=== PATIENT | female | born 1955 | race Caucasian/White ===

== ENCOUNTER → 2017-06-02 | Outpatient (CLI) | payer OTHER ==
[~2017-06-02] MED LIST: HYDR2TAB48 PO
--- NOTE | 2017-06-02 15:39 | DIAGNOSTIC IMAGING REPORT ---
MRI OF THE LUMBAR SPINE WITHOUT CONTRAST CLINICAL HISTORY: Lumbar spine stenosis. Low back pain radiating into left lower extremity. COMPARISON STUDY: No previous studies for comparison. TECHNIQUE: Utilizing a 1.5 Agueda magnet and dedicated coil, multiplanar, multiecho imaging of the lumbar spine was performed without IV contrast. FINDINGS: For purposes of numbering on this exam, the L5-S1 disc space is assigned to axial image 33 of 36. There is 4 mm anterolisthesis of L3 on L4, 6 mm anterolisthesis of L4 and L5 and 5 mm of anterolisthesis of L5 on S1. There is no compression fracture. There is no suspicious marrow replacement. There is no intracanalicular mass or fluid collection. Paravertebral soft tissues are unremarkable. A few small T2 hyperintense uterine lesion suggest fibroids. The conus terminates at the lower L2 level. L1-2: There is mild disc bulge. The central canal and neural foramen are patent. L2-3: There is disc space narrowing with disc bulge. There is mild facet arthrosis. Central canal and neural foramen are patent. L3-4: There is grade I anterolisthesis with uncovering of the disc. There is facet arthrosis. Ligamentous hypertrophy is present. There is mild narrowing of the central canal and both neural foramen. L4-5: There is grade I anterolisthesis with disc bulge, facet arthrosis and ligamentous hypertrophy. There is mild during of the central canal and moderate to severe narrowing of both neural foramen. L5-S1: There is grade I anterolisthesis. The central canal is patent. There is moderate to severe narrowing of both neural foramen. IMPRESSION: 1. Grade I anterolisthesis of L3 on L4, L4-L5 and L5 on S1. 2. Mild central canal stenosis at L3-L4 and L4-L5. 3. Moderate to severe bilateral neural foraminal stenosis at L4-L5 and L5-S1, as described above. 4. Severe lower lumbar spine facet arthrosis. Electronically signed by: Eladio Dillon M.D. 06/02/2017 3:38 PM Dictated Date/Time: 06/02/2017 3:32 PM
== END | disposition home or self-care (01) ==
LOC: C.MRIBC 14:29
PROVIDERS: ATTEND Orthopaedic Surgery Orthopaedic Surgery of the Spine
DX: M48.06 Spinal stenosis, lumbar region (principal); M43.19 Spondylolisthesis, multiple sites in spine

== ENCOUNTER → 2017-06-11 | Outpatient (CLI) | payer OTHER ==
--- NOTE | 2017-06-11 11:22 | DIAGNOSTIC IMAGING REPORT ---
CAROTID DOPPLER NECK ART CLINICAL HISTORY: 62 years-old Female presenting with CAROTID BRUIT. TECHNIQUE: Real-time grayscale and color and spectral Doppler ultrasound imaging of the bilateral carotid arteries was performed. NASCET criteria was used in evaluating this study. COMPARISON: None. FINDINGS: Right: Common carotid: Patent. Peak systolic velocity 75 cm/s. Internal carotid artery: Atherosclerotic plaque. Peak systolic velocity 83 cm/s. External carotid artery: Atherosclerotic plaque. Peak systolic velocity 55 cm/s. Systolic ratio: 1.1. Left: Common carotid: Mild atherosclerotic plaque near the bulb. Peak systolic velocity 79 cm/s. Internal carotid artery: Atherosclerotic plaque. Peak systolic velocity 92 cm/s. External carotid artery: Atherosclerotic plaque. Peak systolic velocity 54 cm/s. Systolic ratio: 1.3. Bilateral antegrade flow within the vertebral arteries. Reference ranges: Normal ICA peak systolic velocity less than 125 cm/s. Normal ICA peak systolic velocity to common carotid artery velocity ratio is less than 2: less than 2 equates to less than 50% stenosis, 2-4 equates to 50-69% stenosis, greater than 4 equates to greater than or equal to 70% stenosis. Normal ICA end-diastolic velocity less than 40. Blood pressure Brachial: Right: 144/94 mmHg, Left: 162/89 mmHg. IMPRESSION: No hemodynamically significant stenosis seen within the carotid arteries. Electronically signed by: Efraín Barrett M.D. 06/11/2017 11:21 AM Dictated Date/Time: 06/11/2017 11:19 AM
== END | disposition home or self-care (01) ==
LOC: C.ULTR 10:34
PROVIDERS: ATTEND Physician Assistant Medical
DX: R09.89 Other specified symptoms and signs involving the circulatory and respiratory systems (principal)

== ENCOUNTER 2017-06-18 11:36 | Inpatient (IN) | payer OTHER ==
[2017-06-11 09:17] VITALS: BMI 25.0
--- NOTE | 2017-06-11 09:41 | PAT Medication Instructions ---
Service Date Jun 11, 2017. Current Home Medication List Hydromorphone Hcl (Dilaudid), 2 MG PO Q6 PRN for Pain Medication Instructions For Your Scheduled Surgery - Take the following medications the morning of surgery with a sip of water: Hydromorphone Hcl (Dilaudid), 2 MG PO Q6 PRN for Pain (okay to take up to 4 hours prior to surgery if needed) - Take the following medications as scheduled the night before surgery: Hydromorphone Hcl (Dilaudid), 2 MG PO Q6 PRN for Pain (if needed) If you have any questions please call us at [phone] or [phone] or [phone]
[2017-06-11 10:29] LABS: BASO % 0.7 %; BASO ABS # 0.02 K/uL (0-0.2); COMPLETE YES; EOS % 3.1 %; HEMATOCRIT 35.4 % (37-47); IG% 0.3 %; LYMPH % 32.4 %; LYMPH ABS # 0.95 K/uL (1.2-3.4); MEAN CELL VOLUME 92.7 fL (80-100); MEAN CORPUSCULAR HEMOGLOBIN 30.9 pg (25-34); MEAN CORPUSCULAR HGB CONC 33.3 g/dl (32-36); MEAN PLATELET VOLUME 9.8 fL (7.4-10.4); MONO % 5.5 %; PLATELET COUNT 191 K/uL (130-400); RED BLOOD COUNT 3.82 M/uL (4.2-5.4); WHITE BLOOD COUNT 2.93 K/uL (4.8-10.8)
--- NOTE | 2017-06-11 10:32 | DIAGNOSTIC IMAGING REPORT ---
CHEST PREADMISSION(PA/LAT) CLINICAL HISTORY: 62 years-old Female presenting with preoperative/preadmission chest x-ray. TECHNIQUE: PA and lateral views of the chest were obtained. COMPARISON: None. FINDINGS: Cardiomediastinal silhouette normal. Lungs and pleural spaces clear. Degenerative changes of the thoracic spine. Upper abdomen normal. IMPRESSION: 1. No acute cardiopulmonary disease. Electronically signed by: Efraín Barrett M.D. 06/11/2017 10:31 AM Dictated Date/Time: 06/11/2017 10:30 AM
[2017-06-11 10:35] LABS: URINE APPEARANCE CLEAR (CLEAR); URINE BILIRUBIN NEG (NEG); URINE COLOR YELLOW; URINE EPITHELIAL CELL AUTO 0-5 /lpf (0-5); URINE NITRITE NEG (NEG); URINE PH 7.5 (4.5-7.5); URINE SPECIFIC GRAVITY 1.011 (1.000-1.030); UROBILINOGEN NEG (NEG)
[2017-06-11 10:36] LABS: BUN/CREATININE RATIO 16.6 (10-20); CALCIUM 9.3 mg/dl (8.5-10.1); CREATININE 0.64 mg/dl (0.60-1.20); MANUAL MICROSCOPIC REQUIRED? NO; POTASSIUM 4.6 mmol/L (3.5-5.1); REVIEW REQ? NO
[2017-06-11 10:38] LABS: INR 0.9 (0.9-1.1)
[~2017-06-18] VITALS: Ht 152.4 cm; Wt 58.5 kg
[2017-06-18] VITALS (8 sets, daily range): BP systolic 83–166; BP diastolic 55–87; PULSE 61–83; TEMP 36.3–37.1; O2SAT 95–100; Ht 152.4 cm; Wt 58.5 kg
--- NOTE | 2017-06-18 07:06 | History and Physical ---
History & Physical Date Jun 18, 2017. Chief Complaint Back pain specifically left lower extremity difficulty paresthesias numbness and tingling History of Present Illness Back and lower extremity difficulty ongoing now for several weeks in duration. Patient was initially working here at [employer] is pushing or pulling a cart injury to her left lower extremity initially thought to be a sprained ankle. Careful workup problem continued with increasing paresthesias weakness cruciate pain. Careful examination imaging assessment is that this problem in the lumbar spine with significant nerve root entrapment severe spinal stenosis and a spondylolisthesis. I believe her employment exacerbated a pre-existing anatomic problem but abruptly brought on her painful situation. Past Medical/Surgical History Negative for chest pain and angina asthma and anxiety negative diabetes negative anemia positive for spine problems sciatica no kidney or liver disease no history carcinoma past surgical history is Surgical history cleft palate repair Additional History Hepatic Disease: No Endocrine Disorder: No Kidney Disease: No Hypertension: No Heart Disease: No Bleeding Tendencies: No Infectious Diseases: No Allergies Coded Allergies: Latex1 -Allergic Contact Dermititis (Verified Allergy, Unknown, itchy, 06/11) Home Medications Scheduled PRN Hydromorphone Hcl (Dilaudid), 2 MG PO Q6 PRN for Pain Physical Examination Skin: warm/dry Eyes: normal inspection ENT: normal ENT inspection Head: normocephalic Respiratory/Chest: lungs clear Cardiovascular: regular rate, rhythm Abdomen / GI: normal bowel sounds Back: + pertinent finding (pain with percussion decreased range of motion) Extremities: normal inspection, normal range of motion, + pertinent finding ( normal on inspection use of dorsiflexion of the left paresthesias numbness and tingling on the left-hand side particularly in the 5 distribution regime) Neurologic/Psych: + pertinent finding (weakness with dorsiflexion and great toe strength on the left) Diagnosis Spondylolisthesis lumbar spine severe spinal stenosis lumbar spine L4 5 Plan Posterior lumbar interbody fusion L4 5 lumbar spine ASA Classification: ASA Class II Plan of Treatment Posterior lumbar interbody fusion L4 5
[~2017-06-18 11:36] MED LIST changes: +ATROPINE SULFATE 0.1 MG/ML 5ML SYR IV PRN; +CEFAZOLIN 2000 MG/60 ML D5W 60 ML IV SCH; +EpHEDrine SULFATE INJ 50 MG/ML AMP IV PRN; +FENTANYL CITRATE INJ 50 MCG/1 ML 2 ML VIAL IV PRN; +FENTANYL CITRATE INJ 50 MCG/1 ML 2 ML VIAL ONE; +HYDROmorphone INJ 1 MG/ML SYR IV PRN; +LABETALOL HCL IV 5 MG/ML 20ML IV PRN; +LACTATED RINGER'S 1000ML 1,000 ML IV SCH; +MEPERIDINE HCL 25 MG/ML CARP IV PRN; +MIDAZOLAM HCL 1 MG/ML 2ML VIAL ONE; +NSS 1000ML IV SCH; +ONDANSETRON INJ 2 MG/ML 2 ML VIAL IV PRN
[2017-06-18] MEDS ORDERED: GELATIN SPONGE SZ 100 ONE ×2 (13:43→16:04)
[2017-06-18] MEDS ORDERED: THROMBIN FOR SOLN 20000 UNIT KIT ONE (13:43)
[2017-06-18] MEDS ORDERED: BACITRACIN 50000 UNIT VIAL ONE (13:44)
[2017-06-18] MEDS ORDERED: VANCOMYCIN HCL 1000MG/20ML VIAL ONE (13:44)
[2017-06-18] MEDS ORDERED: BUPIVACAINE/EPINEPHRINE 0.5% MPF 1:200,000 10 ML VIAL ONE (13:44)
[2017-06-18] MEDS ORDERED: LIDOCAINE HCL 2% 2 ML VIAL (20MG/ML) ONE (14:35)
[2017-06-18] MEDS ORDERED: DEXAMETHASONE SOD INJ 4 MG/ML VIAL ONE (14:35)
[2017-06-18] MEDS ORDERED: LARYING-O-JET KIT (LTA) ONE ×2 (14:35)
[2017-06-18] MEDS ORDERED: GLYCOPYRROLATE INJ 0.2 MG/ML VIAL ONE (14:35)
[2017-06-18] MEDS ORDERED: ROCURONIUM BROMIDE 10 MG/ML 5 ML VIAL ONE ×2 (14:35→16:21)
[2017-06-18] MEDS ORDERED: NEOSTIGMINE METHYLSULFATE 5 MG/5 ML SYR ONE (14:35)
[2017-06-18] MEDS ORDERED: ONDANSETRON INJ 2 MG/ML 2 ML VIAL ONE (14:35)
[2017-06-18] MEDS ORDERED: PROPOFOL IV EMULSION 10 MG/ML 20 ML VIAL IV ONE (14:35)
[2017-06-18] MEDS ORDERED: DURASEAL DURAL SEALANT 5ML TOP ONE (15:30)
[2017-06-18] MEDS ORDERED: FENTANYL CITRATE INJ 50 MCG/1 ML 2 ML VIAL ONE ×2 (15:41→17:23)
[2017-06-18] MEDS ORDERED: HYDROmorphone INJ 2 MG/ML SYR/VIAL ONE (16:37)
[2017-06-18 16:50] LABS: ISTAT CREATININE 0.4 mg/dl (0.6-1.3); ISTAT HEMOGLOBIN 10.2 g/dl (12.0-16.0); ISTAT IONIZED CALCIUM 1.16 mmol/l (1.12-1.32)
--- NOTE | 2017-06-18 16:53 | DIAGNOSTIC IMAGING REPORT ---
SPINE ONE VIEW, ANY LEVEL HISTORY: Laminectomy/fusion.. FLUOROSCOPY TIME: 12 seconds. FINDINGS: Intraoperative fluoroscopy was provided for the lumbar spine. 2 fluoroscopic spot images were obtained. IMPRESSION: Fluoroscopy provided for a low lumbar laminectomy/fusion.. The above report was generated using voice recognition software. It may contain grammatical, syntax or spelling errors. Electronically signed by: Duncan Brumfield M.D. 06/18/2017 4:52 PM Dictated Date/Time: 06/18/2017 4:52 PM
[2017-06-18] MEDS ORDERED: SODIUM CHLORIDE 0.9% 1000ML 1,000 ML IV SCH (17:13)
[2017-06-18] MEDS ORDERED: LORAZEPAM INJ 1 MG in SYRINGE 0 ML IV PRN (17:15)
[2017-06-18] MEDS ORDERED: ONDANSETRON INJ 2 MG/ML 2 ML VIAL IV PRN (17:15)
[2017-06-18] MEDS ORDERED: ACETAMINOPHEN 325 MG TAB PO PRN (17:15)
[2017-06-18] MEDS ORDERED: MAGNESIUM HYDROXIDE SUSP 30 ML UDC PO PRN (17:15)
[2017-06-18] MEDS ORDERED: LORAZEPAM 1 MG TAB PO PRN (17:15)
[2017-06-18] MEDS ORDERED: METOCLOPRAMIDE HCL INJ 5 MG/ML 2 ML VIAL IV PRN (17:15)
[2017-06-18] MEDS ORDERED: NALOXONE HCL 0.4 MG/1 ML VIAL/CARP IV PRN (17:15)
[2017-06-18] MEDS ORDERED: PROMETHAZINE HCL INJ 12.5 MG in SODIUM CHLORIDE 0.9% 50ML 50 ML IV PRN (17:15)
--- NOTE | 2017-06-18 17:15 | [facility] Post Operative Brief Note ---
Immediate Operative Summary Operative Date Jun 18, 2017. Pre-Operative Diagnosis Spondylolisthesis lumbar spine, severe spinal stenosis lumbar spine L4-L5 Post-Operative Diagnosis same as pre-operative Procedure(s) Performed L3-L5 fusion with pseduomeningocele repair Surgeon Dr. Humble Anthony Biogeographer Surgeon(s) Nima Lofton PA-C Estimated Blood Loss 500mL Findings severe stenosis , two level spondy. Pseudo menengeocle Specimens none per surgeon Complication(s) None Disposition Recovery Room / PACU
[2017-06-18] MEDS: HYDROmorphone HCL 0.5MG/ML 50 ML CASSETTE IV PRN ×3 (17:42→23:20)
--- NOTE | 2017-06-18 17:55 | Anesthesiology Progress Note ---
Anesthesia Post Op Note Date & Time Jun 18, 2017 at 17:55 Vital Signs Pain Intensity: 3 Vital Signs Past 12 Hours Date Time Temp Pulse Resp B/P (MAP) Pulse Ox O2 Delivery O2 Flow Rate FiO2 06/18/17 17:45 36.2 68 14 101/65 97 Nasal Cannula 4 06/18/17 17:35 76 14 86/59 96 Oxymask 10 06/18/17 17:25 75 14 101/69 99 Oxymask 10 06/18/17 17:16 36.4 94 14 105/73 97 Oxymask 10 06/18/17 12:08 37.1 61 18 166/87 (113) 98 Room Air Notes Mental Status: alert / awake / arousable, participated in evaluation Pt Amnestic to Procedure: Yes Nausea / Vomiting: adequately controlled Pain: adequately controlled Airway Patency, RR, SpO2: stable & adequate BP & HR: stable & adequate Hydration State: stable & adequate Anesthetic Complications: no major complications apparent
[2017-06-18 18:16] LABS: HEMATOCRIT 29.1 % (37-47)
[2017-06-18] MEDS: SODIUM CHLORIDE 0.9% 1000ML 1,000 ML IV SCH (18:40)
--- NOTE | 2017-06-18 18:53 | OPERATIVE REPORT ---
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 POSTOPERATIVE DIAGNOSIS: Same. PROCEDURE: 1. Decompression laminectomy L3-L5 lumbar spine, a 3-level laminectomy, L3, L4 and L5. 2. Pedicle screw instrumentation of L3, L4, L5 bilaterally with reduction of 2-level spondylolisthesis. 3. Posterior lateral fusion of L3, L4, L5. 4. Repair of a pseudomeningocele. DESCRIPTION OF PROCEDURE: The patient was taken to the operating room, a general intubated, anesthetic provided to the patient, placed prone. Scrubbed first, prepped with DuraPrep, commenced with surgery. She was draped off sterile. We made a skin incision roughly from L2 to the sacrum. Dissecting the top soft tissue, we came down on the lamina, took the dissection over the facet joints and transverse processes. We then started with the midline decompression, we started at L4 up to L3. Later on, we did the lamina of L5. We did partial facetectomies and preserved most of the facets. We decompressed the neural elements. Foraminotomies provided and the nerve roots were free of obstruction. At the L4 level lumbar spine, there was an erosion of bone into the dura. I am calling it a pseudomeningocele, I think that is an appropriate term, it was quite small, about 1 cm x 1 cm or possibly less. There was basically an absence of the dura at the smaller area on the dural sac. This pseudomeningocele was repaired with 3-0 Nurolon and later patched with DuraSeal. We then instrumented the spine, I was safely able to get pedicle screws in to L3, L4 and L5 bilaterally. I used anatomic landmarks to the best of my ability and C-arm guidance to the best of my ability as well. We are pleased with the reduction and positioning. We then irrigated thoroughly with approximately 500-700 mL. We placed the DuraSeal and Gelfoam over the dural structures. We placed vancomycin powder deep to the wound. We bone grafted the spine getting bone out of the transverse processes at L3, L4 and L5. We closed fascia to fascia over Hemovac drain with 1 Vicryl suture, 2-0 in the subcuticular layer, 3-0 nylon on the skin. Sterile dressings applied. The patient returned supine and carefully extubated to PACU stable. No apparent complications interoperative. Sponge and needle count correct. IMPLANTS USED: By the Giving Assistant. No anesthetic complications. SURGEON: Dr. Anthony. AGRICULTURAL EQUIPMENT SALES ENGINEER: Nima Lofton PA-C. I attest to the content of the Intraoperative Record and any orders documented therein. Any exception s are noted below.
[2017-06-18] MEDS: KETOROLAC TROMETHAMINE 30 MG/ML VIAL IV SCH ×2 (19:52→23:30)
[2017-06-18] MEDS: CEFAZOLIN IV 1,000 MG in DEXTROSE 5% 50ML 50 ML IV SCH (22:19)
[2017-06-18] MEDS: DEXAMETHASONE INJ 10 MG in SYRINGE 0 ML IV SCH (22:19)
[2017-06-19] VITALS (7 sets, daily range): BP systolic 96–129; BP diastolic 59–78; PULSE 70–79; TEMP 36.7–36.8; O2SAT 93–98
[2017-06-19] MEDS: SODIUM CHLORIDE 0.9% 1000ML 1,000 ML IV SCH ×2 (05:38→17:41)
[2017-06-19] MEDS: KETOROLAC TROMETHAMINE 30 MG/ML VIAL IV SCH ×3 (05:38→18:24)
[2017-06-19] MEDS: CEFAZOLIN IV 1,000 MG in DEXTROSE 5% 50ML 50 ML IV SCH ×2 (05:38→13:37)
[2017-06-19] MEDS: DEXAMETHASONE INJ 10 MG in SYRINGE 0 ML IV SCH ×3 (05:38→21:40)
[2017-06-19] MEDS ORDERED: BISACODYL 5 MG TABEC PO PRN (06:00)
[2017-06-19] MEDS ORDERED: BISACODYL 10 MG SUPP PR PRN (06:00)
[2017-06-19] MEDS: HYDROmorphone HCL 0.5MG/ML 50 ML CASSETTE IV PRN (06:59)
[2017-06-19] MEDS ORDERED: OXYCODONE/ACETAMINOPHEN 5-325 TAB PO PRN ×2 (08:00)
[2017-06-19] MEDS ORDERED: HYDROmorphone INJ 2 MG/ML SYR/VIAL IV PRN (08:00)
[2017-06-19] MEDS ORDERED: DC PCA ONE (08:00)
[2017-06-19] MEDS ORDERED: HYDROmorphone INJ 1 MG/ML SYR IV PRN (08:00)
--- NOTE | 2017-06-19 08:09 | Anesthesiology Progress Note ---
Anesthesia Post Op Note Date & Time Jun 19, 2017 at 08:08 Vital Signs Vital Signs Past 12 Hours Date Time Temp Pulse Resp B/P (MAP) Pulse Ox O2 Delivery O2 Flow Rate FiO2 06/19/17 03:24 36.7 75 16 96/59 (71) 97 Room Air 06/18/17 23:32 Room Air 06/18/17 23:07 36.7 77 16 101/67 (78) 96 Room Air 06/18/17 21:15 36.5 83 18 93/61 (72) 95 Room Air 06/18/17 20:11 36.4 64 18 90/58 (69) 100 Nasal Cannula 1.0 Notes Mental Status: alert / awake / arousable, participated in evaluation Pt Amnestic to Procedure: Yes Nausea / Vomiting: adequately controlled Pain: adequately controlled Airway Patency, RR, SpO2: stable & adequate BP & HR: stable & adequate Hydration State: stable & adequate Anesthetic Complications: no major complications apparent
[2017-06-19] MEDS: POLYETHYLENE (MIRALAX) 17 GM PACK PO SCH (09:08)
--- NOTE | 2017-06-19 12:29 | Discharge Instructions ---
Discharge Instructions Date of Service Jun 19, 2017. Admission Reason for Admission: Lumbar Spinal Stenosis Discharge Discharge Diagnosis / Problem: same Discharge Goals Goal(s): Improve function Activity Recommendations Activity Limitations: as noted below Lifting Limitations: gradually increase as tolerated Exercise/Sports Limitations: until after follow-up appointment May Resume Sexual Activity: after follow-up appointment Shower/Bathe: keep incision dry common sense, be careful . Current Hospital Diet Patient's current hospital diet: Regular Diet Discharge Diet Recommended Diet: Regular Diet Procedures Procedures Performed: L3-L5 fusion with pseduomeningocele repair Pending Studies Studies pending at discharge: no Medical Emergencies . Who to Call and When: Medical Emergencies: If at any time you feel your situation is an emergency, please call 911 immediately. . Non-Emergent Contact Non-Emergency issues call your: Primary Care Provider . "Provider Documentation" section prepared by Humble Anthony. . VTE Core Measure Inpt VTE Proph given/why not?: Treatment not indicated
[2017-06-19] MEDS ORDERED: NURSING DECISION MEDICATION ORDER SCH (23:00)
[2017-06-20] MEDS: DEXAMETHASONE INJ 10 MG in SYRINGE 0 ML IV SCH (05:21)
[2017-06-20 06:13] VITALS: BP 149/89; PULSE 70; TEMP 36.5; O2SAT 99
[2017-06-20] MEDS: POLYETHYLENE (MIRALAX) 17 GM PACK PO SCH (07:26)
--- NOTE | 2017-06-20 08:23 | DISCHARGE SUMMARY ---
Improved, stable. Minimal complaints of pain, some soreness. No shortness of breath, no chest pain, no confusion. She will be discharged home in improved, stable condition later on this morning. Instructions given, warnings given, precautions, prescriptions, and we will see her back in the office in approximately 10 days.
[2017-06-20 09:33] VITALS: BP 149/89; PULSE 70; TEMP 36.5; O2SAT 99
== END 2017-06-20 11:08 | disposition home or self-care (01) | DRG 460 ==
LOC: C.ACU 11:36 → C.3E 12:25 → ENRESERV 17:28
PROVIDERS: ADMIT Orthopaedic Surgery Orthopaedic Surgery of the Spine; ATTEND Orthopaedic Surgery Orthopaedic Surgery of the Spine
PROC: 00QT0ZZ Repair Spinal Meninges, Open Approach (ICD-10-PCS; principal; 2017-06-18 13:30)
PROC: 0SG1071 Fusion of 2 or more Lumbar Vertebral Joints with Autologous Tissue Substitute, Posterior Approach, Posterior Column, Open Approach (ICD-10-PCS; principal; 2017-06-18 13:30)
DX: M48.06 Spinal stenosis, lumbar region (principal); M43.16 Spondylolisthesis, lumbar region; Z91.040 Latex allergy status; G96.19 Other disorders of meninges, not elsewhere classified

== ENCOUNTER 2021-04-19 04:59 | Observation (INO) ==
--- NOTE | 2021-03-25 12:29 | PAT Medication Instructions ---
Medication Instructions Date of Service March 25, 2021 Home Medications Medication Instructions Recorded celecoxib 100 mg capsule 100 mg PO DAILY #30 cap 08/24/20 celecoxib 100 mg capsule 100 mg PO DAILY acetaminophen [Tylenol] 325 mg PO QID PRN ascorbic acid (vitamin C) [Vitamin C] 1,000 mg PO QAM cyanocobalamin (vitamin B-12) 1,000 mcg PO QAM Continue as directed acetaminophen [Tylenol] 325 mg PO QID PRN (if needed, may be taken up to four hours before surgery) ASK your surgeon for instructions celecoxib 100 mg capsule 100 mg PO DAILY DO NOT take the morning of surgery ascorbic acid (vitamin C) [Vitamin C] 1,000 mg PO QAM cyanocobalamin (vitamin B-12) 1,000 mcg PO QAM Other Notes If you have any questions please call us at [phone] or [phone] or [phone] or [phone]
--- NOTE | 2021-03-26 11:19 | Anesthesiology Consultation ---
Date of Service March 26, 2021 Assessment & Plan (1) Encounter for pre-operative examination: COVID Status: As of 03/27 assessment, patient denies travel to endemic area, known exposure/sick contacts, or symptoms of COVID19. Patient instructed that they and their household members must follow strict social distancing guidelines, wear a mask in public and avoid travel/events/gatherings for 14 days prior to surgery. Preoperative COVID19 testing to be completed prior to surgery per surgeon's arrangements (/ per pt). Patient made aware to self-isolate as much as possible between COVID testing and surgery. Pt is fully vaccinated for COVID. Chart Review Chart Review: Acceptable Risk for Surgery and Patient NOT seen in Pre Admission Testing Teaching & Discussion Instructed NPO after midnight before surgery, except medications with 15 cc of water. Medication instructions provided according to the PAT guidelines. History Surgery Operation Date: 04/19/21 10:45 Proposed Procedures p Right Total Knee Arthroplasty - Nima Miner DO Height/Weight Height: 4 ft 10 in Weight: 55.5 kg Allergies Allergy/AdvReac Type Severity Reaction Status Date / Time latex Allergy Unknown itchy Verified 01/09/21 09:54 Medications Home Medications Medication Instructions Recorded Confirmed Last Taken celecoxib 100 mg capsule 100 mg PO DAILY #30 cap 08/24/20 03/22/21 Unknown acetaminophen [Tylenol] 325 mg PO QID PRN 03/22/21 03/22/21 Unknown ascorbic acid (vitamin C) [Vitamin 1,000 mg PO QAM 03/22/21 03/22/21 Unknown C] cyanocobalamin (vitamin B-12) 1,000 mcg PO QAM 03/22/21 03/22/21 Unknown Past Medical History Medical History Bilateral primary osteoarthritis of knee Left medial tibial plateau fracture Osteoarthritis Exercise / Class Metabolic Activity II 4-5 Yardwork/Stairs/Walk up hill (very active at work, works for [employer] at [employer]) Past Surgical History Surgical History History of lumbar fusion History of tooth extraction Hx of oral surgery FOR CLEFT PALATE CHILD AND TEEN Past Anesthesia History No Hx of Anesthesia Complications and No Family Hx of Anesthesia Complications History of PONV No Hx of PONV and No Hx of Motion Sickness Social History Smoking Status: Never smoker Do You Dip or Chew Tobacco: No Hx Alcohol Use: Yes Alcohol type: beer, wine and hard liquor alcohol intake frequency: a few times a month Hx Substance Use: No substance use type: does not use Review of Systems Pt denies any recent chest pain, shortness of breath, palpitations, cough, fever, URI, or uncontrolled acid reflux. Physical Exam Vital Signs BP: 135/81 P: 65bpm SPO2: 99% RA T: 97.7 F R: 16 ENMT Mouth: + dentures (partial upper) and + chipped teeth (two upper broken teeth); no loose teeth Thyromental Distance: > or= 3.5 Finger Breadths Mallampati Class: II Neck normal visual inspection; neck extension not limited Respiratory normal respiratory effort, lungs clear to auscultation Cardiovascular Rate/Rhythm: regular rhythm and + bradycardic Heart Sounds: no murmur Extremities: no edema Testing Laboratory Results 03/26/21 11:35 03/26/21 11:35 PT 9.9 Seconds (9.0-12.0) 03/26/21 11:35 INR 1.0 (0.9-1.1) 03/26/21 11:35 APTT 24.9 Seconds (21.0-31.0) 03/26/21 11:35 Blood Type A Negative 03/26/21 11:35 Antibody Screen NEGATIVE 03/26/21 11:35 Electrocardiogram Date: 03/26/21 Findings: + SB @ (50bpm) Left axis deviation. Compared to EKG of 06/11/2017, no significant change found. Chest X-Ray Date: 03/26/21 FINDINGS: The cardiac silhouette remains mildly enlarged. There is a mildly tortuous thoracic aorta. The lungs are clear. No pleural effusions. No pneumothorax. No evidence for pulmonary edema. Partially visualized lumbar spin al fusion hardware is noted. Moderate degenerative disc disease within the thoracic and lumbar spine. IMPRESSION: Stable mild cardiomegaly. Otherwise, no acute process within the chest.
[2021-03-26 12:09] LABS: Basophils # (auto) 0.02 K/uL (0-0.2); Basophils % (auto) 0.4 %; Eosinophils # (auto) 0.07 K/uL (0-0.5); Eosinophils % (auto) 1.4 %; Hematocrit (blood only) 35.4 % (37-47); Hemoglobin 11.8 g/dL (12.0-16.0); Immature Granulocytes # (auto) 0.01 K/uL (0.00-0.02); Immature Granulocytes % (auto) 0.2 %; Lymphocytes # (auto) 2.16 K/uL (1.2-3.4); Lymphocytes % (auto) 42.9 %; Mean Corpuscular Hemoglobin 30.8 pg (25-34); Mean Corpuscular Hgb Conc 33.3 g/dL (32-36); Mean Corpuscular Volume 92.4 fL (80-100); Mean Platelet Volume 9.8 fL (7.4-10.4); Monocytes # (auto) 0.38 K/uL (0.11-0.59); Monocytes % (auto) 7.6 %; Neutrophils # (auto) 2.39 K/uL (1.4-6.5); Neutrophils % (auto) 47.5 %; Platelet Count 258 K/uL (130-400); RDW Coefficient of Variation 13.6 % (11.5-14.5); RDW Standard Deviation 45.6 fL (36.4-46.3); Red Blood Count 3.83 M/uL (4.2-5.4); White Blood Count 5.03 K/uL (4.8-10.8)
--- NOTE | 2021-03-26 12:12 | XRay Report ---
XR chest Pre-admission PA/Lat HISTORY: Preop. COMPARISON: 06/11/2017. FINDINGS: The cardiac silhouette remains mildly enlarged. There is a mildly tortuous thoracic aorta. The lungs are clear. No pleural effusions. No pneumothorax. No evidence for pulmonary edema. Partiall y visualized lumbar spinal fusion hardware is noted. Moderate degenerative disc disease within the th oracic and lumbar spine. IMPRESSION: Stable mild cardiomegaly. Otherwise, no acute process within the chest. ACT 112: Negative or not required by law. Electronically signed by: John Sun M.D. 03/26/2021 12:11 PM
--- NOTE | 2021-03-26 12:16 | Electrocardiogram Report ---
Test Reason : Blood Pressure : / mmHG Vent. Rate : 050 BPM Atrial Rate : 050 BPM P-R Int : 156 ms QRS Dur : 100 ms QT Int : 442 ms P-R-T Axes : 006 -43 000 degrees QTc Int : 402 ms Sinus bradycardia Left axis deviation Abnormal ECG When compared with ECG of 11-JUN-2017 09:56, No significant change was found Confirmed by Gabo Salvador ([id number]) on 03/26/2021 12:15:40 PM Referred By: Nima Miner Confirmed By:Alexis Salvador
[2021-03-26 12:20] LABS: BUN Creatinine Ratio 26.8 (10-20); Calcium 9.2 mg/dl (8.5-10.1); Creatinine Clr Calc Pharmacy 96.2 ml/min; Est GFR (African American) 123.7 ml/min; Est GFR (Non-African American) 106.7 ml/min; Partial Thromboplastin Ratio 0.9; Partial Thromboplastin Time 24.9 Seconds (21.0-31.0); Potassium 4.8 mmol/L (3.5-5.1); Prothrombin Time 9.9 Seconds (9.0-12.0)
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
[2021-04-19] MEDS ORDERED: ROPIVACAINE 0.5% HCL/PF 150 MG, BUPIVACAINE 0.75% MPF 20 ML, EPINEPHrine 30MG/30ML (OR ... INSTIL SCH ×2 (06:00)
[2021-04-19] MEDS ORDERED: TRANEXAMIC ACID 1,000 MG **IV Intra-op IV SCH (06:00)
[2021-04-19] MEDS ORDERED: LR 60ML/HR IV SCH (06:00)
[2021-04-19] MEDS ORDERED: ACETAMINOPHEN 500 MG TAB PO SCH (06:00)
[2021-04-19] MEDS ORDERED: dexAMETHasone 4 MG TAB PO SCH (06:00)
[2021-04-19] MEDS ORDERED: LR 500ML BOLUS, THEN 15ML/HR IV SCH (06:00)
[2021-04-19] MEDS ORDERED: FAMOTIDINE 20 MG TAB PO SCH (06:00)
[2021-04-19] MEDS ORDERED: GABAPENTIN 300 MG CAP PO SCH (06:00)
[2021-04-19] MEDS ORDERED: ceFAZolin 1000MG 1,000 MG/7.5 ML SYR IV SCH (06:00)
[2021-04-19] MEDS ORDERED: ROPIVACAINE 0.5% HCL/PF 150 MG, BUPIVACAINE 0.75% MPF 20 ML, EPINEPHrine 30MG/30ML (OR ... INFIL SCH (06:00)
[2021-04-19] MEDS ORDERED: TRANEXAMIC ACID 1,000 MG **IV Pre-op IV SCH (06:00)
[2021-04-19] MEDS ORDERED: ORTHO JOINT ANESTHETIC ONE (06:27)
[2021-04-19] MEDS ORDERED: PROPOFOL IV EMULSION 10 MG/ML 20 ML VIAL IV ONE (06:32)
[2021-04-19] MEDS ORDERED: LIDOCAINE 2% 2 ML VIAL/AMP(20MG/ML) INFIL ONE (06:32)
[2021-04-19] MEDS ORDERED: MIDAZOLAM HCL 1 MG/ML 2ML VIAL ONE (06:32)
[2021-04-19] MEDS ORDERED: fentaNYL citrate 100 MCG/2 ML VIAL ONE (06:33)
[2021-04-19] MEDS ORDERED: BUPIVACAINE 0.5 % 5 MG/1 ML PF 10ML VIAL ONE (06:35)
[2021-04-19] MEDS ORDERED: ROPIVACAINE 0.5% 5 MG/ML 30 ML VIAL ONE (06:35)
--- NOTE | 2021-04-19 06:51 | History & Physical Bridge Note ---
Date of Service April 19, 2021 History & Physical Bridge Note I have examined the patient, reviewed the History & Physical and in the interval since the performance of the History & Physical I have noted the following changes of clinical significance: no changes noted
[2021-04-19] MEDS ORDERED: HYDROmorphone INJ 1 MG/ML SYRINGE IV PRN (06:55)
[2021-04-19] MEDS ORDERED: KETOROLAC 30 MG/ML VIAL IV PRN (06:55)
[2021-04-19] MEDS ORDERED: ONDANSETRON INJ 2 MG/ML 2 ML VIAL IV PRN ×2 (06:55→10:30)
[2021-04-19] MEDS ORDERED: ATROPINE SULFATE 0.1 MG/ML 10ML SYR IV PRN (06:55)
[2021-04-19] MEDS ORDERED: ePHEDrine sulfate 50 MG/ML AMP IV PRN (06:55)
[2021-04-19] MEDS ORDERED: ONDANSETRON INJ 2 MG/ML 2 ML VIAL ONE (07:09)
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
--- NOTE | 2021-04-19 09:05 | XRay Report ---
RIGHT KNEE 2 VIEWS History: Right total knee arthroplasty. Degenerative arthritis. Postop. FINDINGS: The patient is status post a right total knee arthroplasty. The hardware is intact. No frac ture or dislocation. Skin ellen are in place. IMPRESSION: Right total knee arthroplasty. No evidence for hardware complication. ACT 112: Negative or not required by law. Electronically signed by: John Sun M.D. 04/19/2021 9:04 AM
--- NOTE | 2021-04-19 10:03 | Anesthesiology Progress Note ---
Date of Service April 19, 2021 Anesthesia Post Procedure Vital Signs Vital Signs: Temp Pulse Pulse Resp BP Pulse Ox 04/19/21 09:45 57 L 14 100/56 L 97 04/19/21 09:30 36.5 C 53 L 14 93/49 L 97 04/19/21 09:15 64 14 95/55 L 96 04/19/21 09:00 63 14 102/67 94 04/19/21 08:50 64 14 110/69 96 04/19/21 08:40 36.5 C 72 14 123/72 100 04/19/21 08:30 62 14 114/70 100 04/19/21 08:22 36.6 C 75 14 112/69 100 04/19/21 05:20 36.5 C 70 20 175/87 H 98 Transfer of Care Handoff Completed per policy Notes Mental Status: alert / awake / arousable Patient Amnestic to Procedure: Yes Nausea / Vomiting: adequately controlled Pain: adequately controlled Airway Patency, RR, SpO2: stable & adequate BP & HR: stable & adequate Hydration State: stable & adequate Neuraxial Anesthesia: was administered and sensory block is resolving Anesthetic Complications: no major complications apparent
[2021-04-19] MEDS ORDERED: oxyCODONE HCL IR 5 MG TAB (IMMEDIATE RELEASE) PO PRN (10:30)
[2021-04-19] MEDS ORDERED: HYDROmorphone INJ 0.5 MG/0.5 ML SYR IV PRN (10:30)
[2021-04-19] MEDS ORDERED: NALOXONE HCL 0.4 MG/1 ML VIAL/CARP IV PRN (10:30)
[2021-04-19] MEDS ORDERED: MAGNESIUM HYDROXIDE SUSP 30 ML UDC PO PRN (10:30)
[2021-04-19] MEDS ORDERED: METOCLOPRAMIDE HCL INJ 5 MG/ML 2 ML VIAL IV PRN (10:30)
[2021-04-19] MEDS ORDERED: bisacodyL 10 MG SUPP PR PRN (10:30)
[2021-04-19] MEDS: ASPIRIN 81 MG ECTAB PO SCH ×2 (12:22→19:53)
[2021-04-19] MEDS: DOCUSATE SODIUM 100 MG CAP PO SCH ×2 (12:22→19:53)
[2021-04-19] MEDS: KETOROLAC 30 MG/ML VIAL IV SCH ×3 (12:23→22:33)
[2021-04-19] MEDS: MULTIVITAMIN TAB PO SCH (12:23)
[2021-04-19] MEDS: SODIUM CHLORIDE 0.9% 1000ML 1,000 ML IV SCH ×2 (12:23→18:14)
[2021-04-19] MEDS: ACETAMINOPHEN 500 MG TAB PO SCH ×2 (13:01→19:54)
[2021-04-19] MEDS: ceFAZolin 2000MG 2,000 MG/15 ML SYR IV SCH ×2 (14:58→22:33)
[2021-04-19] MEDS ORDERED: SENNA 8.6 MG TAB PO SCH (21:00)
[2021-04-20] MEDS: ACETAMINOPHEN 500 MG TAB PO SCH (05:27)
[2021-04-20] MEDS: KETOROLAC 30 MG/ML VIAL IV SCH ×2 (05:28→11:14)
[2021-04-20] MEDS: ASPIRIN 81 MG ECTAB PO SCH (07:28)
[2021-04-20] MEDS: MULTIVITAMIN TAB PO SCH (07:28)
[2021-04-20] MEDS: DOCUSATE SODIUM 100 MG CAP PO SCH (07:28)
--- NOTE | 2021-04-20 07:42 | Orthopedic Progress Note ---
Date of Service April 20, 2021 Assessment & Plan (1) Status post right knee replacement: Overall she is doing very well. She is not any much pain in the right knee. She is on aspirin for DVT prophylaxis. She will be seen by therapy later today for ambulation and range of motion exercises. The dressing can be changed after therapy today. She can be discharged to home. She will follow-up with orthopedics in 2 weeks. Wayne Benoit was seen and examined at bedside this morning. Overall she is doing fairly well. She is not having much pain in the right knee. She has been up and ambulating to the bathroom. She has no complaints.. Review of Systems All systems reviewed & are unremarkable except as noted in HPI & below. Physical Exam On physical examination of the right knee, the dressing is clean and dry. Her leg is out full extension. She has active dorsiflexion and plantarflexion of her right ankle.. Results & Data Results & Data Laboratory Results . Diagnostic Findings Postoperative x-rays of the right knee show the prosthesis to be in anatomic alignment without any evidence of fracture, dislocation, or loosening. PG Care Time/CCT Total # of Minutes Spent Total Time Spent with Patient: Total time spent is greater than 50% in coordination of care (as documented) at patient's floor/unit and/or counseling patient: Coding Level of Care Code 56403 Post Operative Follow-Up Diagnoses Status post right knee replacement Z96.651
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
[2021-04-20] MEDS ORDERED: dexAMETHasone 4 MG TAB PO SCH (08:00)
== END 2021-04-20 11:20 | disposition home health service (06) ==
LOC: ASU 04:59 → 3E 04:59